=== PATIENT | male | born 1935 | race Caucasian/White ===

== ENCOUNTER 2017-02-19 09:13 | Emergency (ER) | payer MEDICARE, OTHER ==
[~2017-02-19] VITALS: Ht 170.2 cm; Wt 74.5 kg
[~2017-02-19 09:13] MED LIST: ASCORBIC ACID 1000 MG; ASPI81TA2 PO; FISH OIL; HCTZ 25 MG; HYDR1CAP2 PO; LISI40TA13 PO; OXYC-176 PO; PRAV80TA PO; SUPER B; ZLP5T PO
[2017-02-19 09:33] VITALS: BP 93/37; PULSE 51; RESP 14; O2SAT 100
--- NOTE | 2017-02-19 09:34 | ED.REPORT ---
HPI-General Illness Date of Service February 19, 2017 ED Provider: Bon Guallpa MD The patient is a 81 year old male who presents to the ED accompanied by his due to abdominal pain onset yesterday. He was doing excessive physical labor in the yard yesterday. This morning he had a bowel movement and slight abdominal pain. He was outside in the garage and became extremely dizzy, lightheaded and could barely walk into the house. The pt went into the bathroom and passed out while having a large bowel movement. The next thing he remembers is the ambulance arriving. His called the medics. He denies chest pain, SOB , heart palpitations, blurred vision, headache, difficulty speaking, or confusion. He has never lost consciousness before. Pt is currently on Gabapentin , Tylenol, Trazodone, Cubero, and Pravastatin. Nursing Notes Stated Complaint: SYNCOPE Chief Complaint: General Complaint Nursing Notes Reviewed: Yes Allergies: Coded Allergies: No Known Allergies (Verified , 12/09/09) Scheduled ([super b 1 day]) 1 DAILY Aspirin-Expunged Drug, Do Not Renew! (Aspirin-Expunged Drug, Do Not Renew!) 81 Mg Tablet 81 MG PO DAILY Hydrocod/APAP-Expunged, Do Not Renew! (Hydrocod/APAP 5/500-Expunged, Do Not Renew!) 1 Cap Capsule 1 CAP PO PRN Lisinopril-Expunged Drug, Do Not Renew! (Lisinopril-Expunged Drug, Do Not Renew! ) 40 Mg Tablet 40 MG PO DAILY Pravastatin -Expunged Drug, Do Not Renew! (Pravachol-Expunged Drug, Do Not Renew !) 80 Mg Tablet 80 MG PO DAILY Scheduled PRN Oxycodone/APAP-Expunged Drug, Do Not Renew! (Percocet 5/325-Expunged Drug, Do Not Renew!) 1 Each Tablet 1-2 TAB PO Q4 PRN PRN Zolpidem-Expunged Drug, Do Not Renew! (Zolpidem-Expunged Drug, Do Not Renew!) 5 Mg Tab 5 MG PO HS PRN PRN Miscellaneous Medications ([hctz 25mg day]) ([vit c 1000mg day]) ([fish oil 1day]) General Time Seen by MD: 09:24 Chief Complaint Other (syncope) Hx Obtained From: Patient Arrived By: Ambulance Sudden in Onset?: Yes Onset Occurred: Just prior to arrival Symptom Duration: Since onset Severity: Current: No pain currently Recent Healthcare: No recent doctor visit, No recent hospitalization Similar Sx Previous: No Review of Systems Full Review of Systems Eyes: Denies: Blurred bilateral, Blurred left, Blurred right Respiratory: Denies: Shortness of breath Cardiovascular: Denies: Chest pain GI: Reports: Abdominal pain Neurologic: Reports: Dizziness, Lightheaded, Syncope, Denies: Headache, Numbness, Slurred speech, Unable to speak Complete sys rev & neg: except as marked. Physical Exam Vital Signs Vital Signs Date Time Temp Pulse Resp B/P Pulse Ox O2 Delivery O2 Flow Rate FiO2 02/19/17 12:37 68 19 113/45 100 Room Air 02/19/17 11:09 68 111/56 02/19/17 11:09 69 118/53 02/19/17 11:09 70 113/45 02/19/17 09:33 36.4 51 14 93/37 100 Room Air Initial VS: Reviewed ENT: Mucous membranes moist Neck: Supple, Non-tender Respiratory: Breath sounds normal, Clear to auscultation, No respiratory distress Cardiovascular: Regular rate & rhythm, Heart sounds normal, Intact distal pulses Back: No CVA tenderness Extremities: Vascular intact, Neuro intact, No swelling, No tenderness Skin: Warm, Dry General/Constitutional: Awake, Alert, Cooperative, Not toxic appearing Head / Eyes: Normocephalic, PERRL cranial nerves 2-12 are intact Abdomen: Soft, Non-tender no pulsatile masses Lower Extremity / Pelvis / MS: Inspection NL, Full range of motion, No edema Interpretation & Diagnostics Lab Results Interpretation Result Diagram: 02/19/17 0930 02/19/17 0930 Test 02/19/17 09:30 White Blood Count 10.0th/mm3 (3.8-10.1) Red Blood Count 4.43mil/mm3 (4.40-5.80) Hemoglobin 13.8g/dL (13.8-17.2) Hematocrit 41.1% (41.0-50.0) Mean Corpuscular Volume 92.8fL (81-100) Mean Corpuscular Hemoglobin 31.2pg (27.0-35.0) Mean Corpuscular Hemoglobin Concent 33.6% (32.0-37.0) Red Cell Distribution Width 13.6% (12.3-15.4) Platelet Count 313bil/L (150-400) Neutrophils (%) (Auto) 44.9% (40-74) Lymphocytes (%) (Auto) 45.7% (14-46) Monocytes (%) (Auto) 7.1% (4-12) Eosinophils (%) (Auto) 1.9% (0-5) Basophils (%) (Auto) 0.2% (0-3) Sodium Level 140mEq/L (134-144) Potassium Level 3.4mEq/L (3.5-5.2) Chloride Level 101mEq/L (97-108) Carbon Dioxide Level 24mmol/L (18-29) Blood Urea Nitrogen 21mg/dL (8-27) Creatinine 1.06mg/dL (0.76-1.27) Estimat Glomerular Filtration Rate 71mL/min (>59) Glucose Level 150mg/dL (60-99) Calcium Level 9.4mg/dL (8.5-10.1) Magnesium Level 2.1mg/dL (1.6-2.6) Total Bilirubin 0.6mg/dL (0.0-1.2) Aspartate Amino Transf (AST/SGOT) 27U/L (0-50) Alanine Aminotransferase (ALT/SGPT) 27U/L (0-44) Alkaline Phosphatase 68U/L (25-160) Troponin T 0.010ug/L (0.0-0.011) Total Protein 6.7g/dL (6.4-8.4) Albumin 4.1g/dL (3.4-5.0) ECG Interpretation ECG Interpretation: no ST changes Time: 09:59 Normal ECG Interpretation: Normal sinus rhythm (sinus 60), No acute ischemic changes X-Ray Chest Interpretation Chest Xray Interpretation: IMPRESSION: No acute pulmonary process. Dictated by: Sonia Ryan M.D. on 02/19/2017 at 10:01 Approved by: Sonia Ryan M.D. on 02/19/2017 at 10:01 View: Portable Interpretation / Wet Read by: Interpret - Radiologist Re-Eval/Medical Decision Med Decision/Clinical Course 81-year-old male presenting with a syncopal event earlier today. He reports he was up working in the yard for several hours then felt like to take a bowel movement and went to go bowel movement and passed out. He had no cardiac prodrome. He felt much better by arrival. His blood pressure was low on arrival which resolved with IV fluids. His repeat orthostatics were negative. His labs are all unremarkable. His troponins are negative. EKG no signs of ischemia identifiable cause for syncope. Likely orthostatic versus vasovagal. I discussed with patient and he does not want to be admitted any wants to go home. He will return immediately if he has recurrent symptoms. Time of Eval: 11:40 Re-Evaluation/Progress Note: Pt rechecked. All labwork and imaging are normal. Plan for discharge and follow up next week. F/U and RTER warnings given. Pt understands and agrees with plan. All questions addressed. Counseled Regarding: Diagnosis, Lab results, Need for follow-up, When/why to return to ED Discharge & Departure Primary Impression: Syncope Syncope type: unspecified Qualified Code: R55 - Syncope and collapse Disposition: Home Discharge Condition All VS Reviewed: Yes Condition: Stable Additional Instructions: It is likely you lost consciousness due to dehydration, strenuous activity, and physical labor. I do not believe you had a stroke because all of your symptoms have resolved. I do not appreciate any abnormal heart function. All of your lab work is normal. Drink plenty of fluids, stay well hydrated, and get lots of rest this . Follow up with your primary care physician on Tuesday. Return to the Emergency Room immediately if you are having any new or worsening symptoms including chest pain, heart palpitations, shortness of breath, dizziness, sweating, or chills. I hope you feel better soon, enjoy the sunshine! Referrals: Ravi Markham MD (PCP) Scribe Attestation Portion of this note were transcribed by Karis Beasley. I, Dr. Guallpa, personally performed the history, physical exam, and medical decision-making: I reviewed and confirmed the accuracy for the information in the transcribed note. Signed by: eda Garcia, 02/19/17 1100 copies to: Ravi Markham MD, Ben M MD February 19, 2017 09:34 Karis Beasley February 19, 2017 09:51
[2017-02-19 09:45] LABS: BASOPHILS % (AUTO) 0.2 % (0-3); EOSINOPHILS % (AUTO) 1.9 % (0-5); MONOCYTES % (AUTO) 7.1 % (4-12); Mean Corpuscular Hemoglobin 31.2 pg (27.0-35.0); Mean Corpuscular Volume 92.8 fL (81-100); NEUTROPHILS % (AUTO) 44.9 % (40-74); Platelet Count 313 bil/L (150-400)
[2017-02-19] MEDS ORDERED: 0.9% Sodium Chloride 500 ML IV ONE (09:55)
--- NOTE | 2017-02-19 10:03 | DRSVH ---
PROCEDURE: X-RAY CHEST ONE VIEW, PORTABLE ([id number]) INDICATIONS: syncope TECHNIQUE: One view of the chest was acquired. COMPARISON: [facility], , CHEST 1VW (PORTABLE), 02/17/2007, 12:42. FINDINGS: Surgical changes and devices: None. Lungs and pleura: No pleural effusions or pneumothorax. Lungs are clear. Mediastinum: Mediastinal contours appear normal. Heart size is normal. Bones and chest wall: No suspicious bony lesions. Overlying soft tissues appear unremarkable. IMPRESSION: No acute pulmonary process. Dictated by: Sonia Ryan M.D. on 02/19/2017 at 10:01 Approved by: Sonia Ryan M.D. on 02/19/2017 at 10:01
[2017-02-19 10:05] LABS: TROPONIN T 0.01 ug/L (0.0-0.011)
[2017-02-19 10:16] LABS: Magnesium 2.1 mg/dL (1.6-2.6)
[2017-02-19 11:09] VITALS: BP_SYST 111; BP_SYST 113; BP_SYST 118; BP_DIAS 45; BP_DIAS 53; BP_DIAS 56; PULSE 68; PULSE 69; PULSE 70
[2017-02-19 12:17] VITALS: BP 118/53; PULSE 69; RESP 14; O2SAT 100
[2017-02-19 12:37] VITALS: BP 113/45; PULSE 68; RESP 19; O2SAT 100
== END 2017-02-19 12:38 | disposition home or self-care (01) ==
LOC: EDBD 09:13 → SED 09:13 → EDUNIT# 09:13 → SED 12:38
DX: R55 Syncope and collapse (principal); R42 Dizziness and giddiness; I10 Essential (primary) hypertension
CPT/HCPCS: 36415; 71010; 80053; 83735; 84484; 85025; 93005; 99285; J7040